=== PATIENT | male | born 1995 | race African-American/Black ===

== ENCOUNTER 2022-05-09 21:32 | Emergency (ER) | payer SELFPAY ==
[2022-05-09] MEDS ORDERED: Sodium Chloride 0.9% 10 ML Syringe FLUSH PRN (22:13)
[2022-05-09] MEDS ORDERED: Metoclopramide 10 MG/2 ML SDV IVPUSH ONE (22:14)
[2022-05-09] MEDS ORDERED: diphenhydrAMINE 50 MG/ML SDV IVPUSH ONE (22:14)
[2022-05-09] MEDS ORDERED: Ketorolac 30 MG/ML SDV IVPUSH ONE (22:14)
[2022-05-09] MEDS ORDERED: Sodium Chloride 0.9% 1,000 ML IV SCH (22:15)
[2022-05-09 22:54] LABS: ESTIMATED GFR 71 mL/min (>60)
== END 2022-05-10 00:13 | disposition home or self-care (01) ==
LOC: JD.ED 21:32
DX: R51.9 Headache, unspecified (principal); B34.9 Viral infection, unspecified
CPT/HCPCS: 36415; 70450; 80053; 85025; 86140; 86308; 96361; 96374; 96375; 99284; J1200; J1885; J2765; J3490; J7030; 99282